=== PATIENT | male | born 1970 | race Caucasian/White ===

== ENCOUNTER → 2020-02-01 09:13 | Outpatient (BNVA) | payer OTHER, SELFPAY | PROVIDERS: PCP Internal Medicine; Visit Provider Internal Medicine Cardiovascular Disease | DX: Z76.89 Persons encountering health services in other specified circumstances (principal) ==

== ENCOUNTER → 2020-02-22 11:28 | Outpatient (BNVA) | payer OTHER, SELFPAY | PROVIDERS: PCP Internal Medicine; Referring Provider Internal Medicine; Visit Provider Nurse Practitioner Family | DX: Z76.89 Persons encountering health services in other specified circumstances (principal) ==

== ENCOUNTER → 2020-04-08 08:10 | Outpatient (BNVA) | payer OTHER, SELFPAY | PROVIDERS: PCP Internal Medicine; Referring Provider Internal Medicine; Visit Provider Internal Medicine Cardiovascular Disease | DX: I48.0 Paroxysmal atrial fibrillation (principal); I10 Essential (primary) hypertension | CPT/HCPCS: 93005 ==

== ENCOUNTER → 2020-04-10 09:36 | Outpatient (REF) | payer OTHER, SELFPAY | LOC: HO.SL 09:36 | PROVIDERS: PCP Internal Medicine; Visit Provider Nurse Practitioner Family | DX: Z13.89 Encounter for screening for other disorder (principal) ==

== ENCOUNTER 2022-12-28 08:59 | Outpatient (AMB) | payer OTHER, SELFPAY ==
--- NOTE | 2022-12-28 09:01 | MHC.OFFVIS ---
Intake Vital Signs 12/28/22 09:02 Height 6 ft Weight 332 lb 14.368 oz BMI 45.1 BP 160/82 H Blood Pressure Location Lt brachial Position Sitting Pulse 51 Intake Visit Reasons: Overdue f/u Intake Note: overdue f/up Allergies No Known Allergies Allergy (Unknown, Verified 12/28/22 09:10) Medication List - Last Reconciled 12/28/22 by nAa Luisa Hurst, CATALOG LIBRARIAN-C blood pressure monitor (Blood Pressure Kit) monitor home BP once weekly or as needed, keep a log diltiazem HCl (Cardizem CD) 360 mg PO DAILY 90 days diltiazem HCl (Cardizem) 30 mg PO ONCE PRN flecainide 100 mg PO BID 90 days lisinopril mg PO metformin 500 mg PO BID simvastatin 20 mg PO BEDTIME warfarin 10 mg PO DAILY HPI Overdue f/u HPI Details Mario is a 52-year-old male with past medical history of morbid obesity, hypertension, diabetes, sleep apnea, paroxysmal atrial fibrillation who presents for follow-up. His last prior visit to our office was 04/08/2020. Today he reports that he is interested in getting his cardiac care back in line. He denies any hospitalizations or ER trips over the last 3 years. He has not had any changes to his health overall. He says he did lose some weight then gained it back. He continues to drink beer routinely. On the weekend he may drink up to a 12 pack. When he drinks he eats more food. He is interested in seeking out therapy for his addictions. He has discussed this with his PCP. He says he has felt at least 2 episodes of atrial fibrillation since his last visit. The last episode was approximately 8 months ago and lasted a few hours. He can feel heart palpitations clearly when he has AFib. No other associated symptoms. When he gets that he just lays down and waits for it to go way. He reports compliance with his medications including flecainide and diltiazem. He is taking his Coumadin for anticoagulation and for denies any issues with bleeding. He denies shortness of breath, presyncope, syncope, PND, orthopnea or edema. He walks his dog and does normal ADLs. He has a problem with his left foot including neuropathy and says he is disabled. [facility] Medical History Diabetes mellitus HTN (hypertension) Obesity ADRIENNE (obstructive sleep apnea) Paroxysmal A-fib Surgical History H/O hernia repair Family History Father CVD (cardiovascular disease) Social History Alcohol intake: current Alcohol intake frequency: holidays/special occasions only Patient Tobacco Use Status: Tobacco use Unknown Review of Systems Const All systems reviewed & are unremarkable except as noted in HPI and below ENT Denies dizziness Card Denies chest pain, Denies chest pain at rest, Denies chest pain with activity, Denies rapid heart rate, Denies pedal edema, Denies edema, Denies leg edema, Denies lightheadedness, Reports palpitations (Rare on occasion), Denies dyspnea, Denies dyspnea on exertion and Denies orthopnea Resp Denies cough, Denies dyspnea and Denies dyspnea on exertion GI Denies hematochezia and Denies change in stool character Musc Denies abnormal gait, Denies limited range of motion, Denies muscle cramps, Denies muscle weakness, Denies numbness, Denies radiating pain into limb, Denies stiffness and Denies tingling Neuro Denies abnormal gait, Denies dizziness, Denies numbness and Denies tingling Endo Reports palpitations (Rare on occasion) Physical Exam Vital Signs: Last Vital Signs Pulse 51 12/28/22 09:02 BP 160/82 H 12/28/22 09:02 BMI result Body Mass Index 45.1 Const Other: Morbidly obese General: cooperative, comfortable and no acute distress Orientation/consciousness: patient oriented x3 Neck Neck: Yes normal visual inspection Resp Effort & Inspection: normal respiratory effort Auscultation: clear to auscultation bilaterally, no crackles, no rales, no rhonchi and no wheezes Cardio Jugular venous distension: no JVD Rate: regular rate Rhythm: regular rhythm Heart sounds: S1 normal heart sound present, S2 normal heart sound present, no gallops, no murmurs and no rubs Neuro General: patient oriented x3 Extrem General: Yes normal to inspection, No no pedal edema and No calf tenderness Psych Appearance: grossly normal Mental Status: mental status grossly normal Speech and movement: Normal speech and movement present Office Procedures EKG Details: Today, read by me, sinus bradycardia, no acute ST or T-wave abnormalities, rate 51, QTC 398 millisecond [id number], Complete Assessment & Plan Assessment & Plan (1) Paroxysmal A-fib: Code(s): I48.0 - Paroxysmal atrial fibrillation Plan: History of paroxysmal atrial fibrillation. Currently suppressed with flecainide and diltiazem. EKG done today showing sinus bradycardia, heart rate 51. No lightheadedness and has good activity tolerance. Last clinical episode of AFib was approximately 8 months ago. He can clearly tell when AFib is present. Pulse is regular on exam today. Will continue flecainide at 100 mg b.i.d., continue diltiazem 360 mg daily. Continue Coumadin for anticoagulation. He follows with the [facility] at [place] and tells me his INRs have been stable. No bleeding issues reported. Will update echocardiogram. Will order home sleep study as he tells me he has sleep apnea but does not wear a CPAP mask. Cardiology follow-up when test results are available. (2) HTN (hypertension): Code(s): I10 - Essential (primary) hypertension Plan: Elevated today. He is on diltiazem, lisinopril and reports compliance. He has an upcoming visit with PCP. If blood pressure is elevated lisinopril can be further increased. Will also plan to recheck at next visit. (3) ADRIENNE (obstructive sleep apnea): Code(s): G47.33 - Obstructive sleep apnea (adult) (pediatric) Plan: Patient reports prior diagnosis of sleep apnea. Has not been wearing a mask. No testing in the last few years. Will order home sleep study as above (4) Obesity: Code(s): E66.9 - Obesity, unspecified Plan: Morbidly obese. Tells me he has food addiction when he drinks alcohol. He is requesting psychotherapy for understanding and treating his addiction. Will send this note to his PCP for further review. Orders: Orders CA echo transthoracic complete Today I10 - Essential (primary) hypertension, I48.0 - Paroxysmal atrial fibrillation RT home sleep study Today E66.9 - Obesity, unspecified, G47.33 - Obstructive sleep apnea (adult) (pediatric) Coding Level of Care Code Est Pt Level 4 (06642) Diagnoses Paroxysmal A-fib I48.0 HTN (hypertension) I10 ADRIENNE (obstructive sleep apnea) G47.33 Obesity E66.9 CPT Codes EKG - CPT: 26591-[id number], Complete ([id number]) Time Spent (min) 30 Comment Chart review, documentation, interview, assessment
[2022-12-28 09:02] VITALS: BP 160/82; PULSE 51; BMI 45.1
== END 2022-12-28 09:32 | disposition home or self-care (01) ==
PROVIDERS: PCP Internal Medicine; Referring Provider Internal Medicine; Visit Provider Nurse Practitioner Family
DX: I48.0 Paroxysmal atrial fibrillation (principal); I10 Essential (primary) hypertension; G47.33 Obstructive sleep apnea (adult) (pediatric); E66.9 Obesity, unspecified
CPT/HCPCS: 93010; 99214

== ENCOUNTER → 2022-12-28 08:59 | Outpatient (BNVA) | payer OTHER, SELFPAY | PROVIDERS: PCP Internal Medicine; Referring Provider Internal Medicine; Visit Provider Nurse Practitioner Family | DX: I48.0 Paroxysmal atrial fibrillation (principal); I10 Essential (primary) hypertension; G47.33 Obstructive sleep apnea (adult) (pediatric); E66.01 Morbid (severe) obesity due to excess calories; Z68.42 Body mass index [BMI] 45.0-49.9, adult; Z79.01 Long term (current) use of anticoagulants; Z79.899 Other long term (current) drug therapy | CPT/HCPCS: 93005 ==

== ENCOUNTER → 2023-02-15 07:49 | Outpatient (REF) | payer OTHER, SELFPAY ==
--- NOTE | 2023-02-15 08:01 | CA_ITS ---
Transthoracic Echocardiogram Patient (Last, First, Middle): Mario Stokes A Gender: Male Date of : 1970 Age: 52 Procedure Date: 02/15/2023 Procedure Type: Transthoracic Echocardiogram Location: OP Height: 182.88 cm Weight: 145.15 kg BSA: 2.60 m2 Heart Rate: 48 bpm BP: 140 / 80 mmHg Retail Analyst: SAI/SWEETIE Referring MD: Ana Luisa Hurst POWER SAW MECHANICDonyC Symptoms: I48.0 - Paroxysmal atrial fibrillation Study Quality: Adequate w contrast ECG Rhythm: Bradycardia Conclusions: - The left ventricular systolic function is normal. The calculated ejection fraction is 63% by biplane method. - No obvious valvular pathology seen on this study. - There is mild dilatation of the ascending aorta measuring 4.00 cm. Findings Procedure Information Contrast agent, definity, is being given per protocol without apparent complications. Left Ventricle Normal left ventricular cavity size. There is mildly increased left ventricular wall thickness. The left ventricular systolic function is normal. The calculated ejection fraction is 63% by biplane method. There is no evidence of regional wall motion abnormalities. Diastolic function is normal for age. Right Ventricle Mildly increased right ventricular cavity size. There is normal right ventricular systolic function. Atria Mild biatrial enlargement. Aortic Valve There is a normal trileaflet aortic valve. There is mild calcification of the aortic valve. There is no aortic valve stenosis. There is no aortic valve regurgitation. Mitral Valve The mitral valve appears normal. There is no mitral valve regurgitation. There is no mitral valve stenosis. Pulmonic Valve The pulmonic valve is likely normal. Tricuspid Valve There is trace tricuspid valve regurgitation. Tricuspid regurgitation envelope is inadequate for calculation of right ventricular systolic pressure. Great Vessels There is mild dilatation of the ascending aorta measuring 4.00 cm. Small plaque is seen in the sino tubular ridge. Venous The inferior vena cava is normal in size and collapses less than 50% with inspiration. Pericardium/Pleural There is a trivial pericardial effusion. Prior Study Comparison Changes noted compared to prior study dated: 11/11/2017. See comment on ascending aorta. Recommendations, Care & Conclusions No obvious valvular pathology seen on this study. Measurements 2D Linear Measurements IVSd: 1.16 0.6-0.9/0.6-1.0 cm LVIDd: 4.84 3.9-5.3/4.2-5.9 cm LVIDd Index: 1.86 2.4-3.2/2.2-3.1 cm/m2 LVIDs: 3.14 2.0-3.6 cm LVPWd: 1.10 0.7-1.1 cm LA Diam: 4.00 2.7-3.8/3.0-4.0 cm LAIDs Index: 1.54 1.5-2.3 cm/m2 LV Mass: 254.31 67-162/88-224 g LV Mass Index: 97.81 43-95/49-115 g/m2 LVOT Diam: 2.60 3.0+(-)1.3 cm 2D Systolic Function EF 4C: 65.70 >55% EF 2C: 59.20 >55% EF BiP: 63.30 >55% Mitral Valve MV Pk E: 1.16 MV PK A: 0.99 MV Decel Time: 260.00 E/A: 1.20 E'Lateral: 10.70 E'Medial: 7.51 E/E' Med: 15.40 E/E' Lat: 10.80 PHT: 76.00 MVA PHT: 2.89 Decel Rice: 4.47 Aortic Valve AoV Pk Enrico: 1.99 AoV Mn Enrico: 1.35 AoV VTI: 0.55 AoV Pk Grad: 16.00 Aov Mn Grad: 9.00 BRI Cont.VTI: 3.65 LVOT LVOT Pk Enrico: 1.47 LVOT Mn Enrico: 0.93 LVOT VTI: 0.38 LVOT Pk Grad: 9.00 LVOT Mn Grad: 4.00 LVOT Diam: 2.60 LVOT Area: 5.31 Diastolic Function MV Pk E: 1.16 MV Pk A: 0.99 E/A: 1.20 E'Medial: 7.51 E/E' Med: 15.40 E' Laterial: 10.70 E/E' Lat: 10.80 Right Ventricle TAPSE (mm): 22.00 TVS' Enrico: 13.30 Tricuspid Valve RA Press: 8.00 Great Vessels Aorta Sinus of Valsalva: 3.94 2.0-3.[address] Ridge: 2.77 1.7-3.4 cm Ao Asc: 4.00 2.1-3.4 cm Updated in Other Vendor System with Status of Final Pedro Azar MD electronically signed on 02/16/2023 11:57:22 AM with status of Final
== END ==
LOC: HO.CARD 07:49
PROVIDERS: PCP Internal Medicine; Visit Provider Nurse Practitioner Family
DX: I48.0 Paroxysmal atrial fibrillation (principal); I10 Essential (primary) hypertension; G47.33 Obstructive sleep apnea (adult) (pediatric); E66.9 Obesity, unspecified
CPT/HCPCS: 93306; 95806; Q9957

== ENCOUNTER → 2023-02-15 08:01 | Outpatient (BNV) | payer OTHER, SELFPAY | PROVIDERS: PCP Internal Medicine; Visit Provider Internal Medicine | DX: I48.0 Paroxysmal atrial fibrillation (principal); I35.8 Other nonrheumatic aortic valve disorders | CPT/HCPCS: 93306 ==

== ENCOUNTER → 2023-02-15 08:14 | Outpatient (BNV) | payer OTHER, SELFPAY | PROVIDERS: PCP Internal Medicine; Visit Provider Internal Medicine | DX: G47.33 Obstructive sleep apnea (adult) (pediatric) (principal) | CPT/HCPCS: 95806 ==

== ENCOUNTER 2023-03-23 14:59 | Outpatient (AMB) | payer OTHER, SELFPAY ==
[2023-03-23 15:00] VITALS: BP 150/82; PULSE 53; BMI 46.9
--- NOTE | 2023-03-23 15:00 | MHC.OFFVIS ---
Intake Vital Signs 03/23/23 15:00 Height 6 ft Weight 345 lb 10.957 oz BMI 46.9 BP 150/82 H Blood Pressure Location Lt brachial Position Sitting Pulse 53 Pulse Source Pulse Oximeter Intake Visit Reasons: f/up echo/ home sleep Examining Officer Required: No Allergies No Known Allergies Allergy (Unknown, Verified 03/23/23 15:02) Medication List - Last Reconciled 03/23/23 by Ana Luisa Hurst NP-C blood pressure monitor (Blood Pressure Kit) monitor home BP once weekly or as needed, keep a log diltiazem HCl (Cardizem CD) 360 mg PO DAILY 90 days diltiazem HCl (Cardizem) 30 mg PO ONCE PRN flecainide 100 mg PO BID 90 days lisinopril mg PO metformin 500 mg PO BID simvastatin 20 mg PO BEDTIME warfarin 10 mg PO DAILY HPI f/up echo/ home sleep HPI Details Mario is a 52-year-old male with past medical history of morbid obesity, hypertension, diabetes, sleep apnea, paroxysmal AFib who presents for follow-up after recent echocardiogram and sleep study. Today he reports that he has been feeling well with no episodes of heart palpitations. He takes his medications faithfully. He has no chest discomfort, shortness of breath, lightheadedness, presyncope, syncope, falls. No PND, orthopnea or edema. He is on disability for a left foot injury with neuropathy. He had known sleep apnea in the past however it improved after he had lost significant weight. His weight is still down from what it was in the past. He is very to apprise to hear that he has sleep apnea still. No bleeding issues reported. [facility] Medical History Paroxysmal A-fib ADRIENNE (obstructive sleep apnea) Obesity Diabetes mellitus HTN (hypertension) Surgical History H/O hernia repair Family History Father CVD (cardiovascular disease) Alcohol intake: current Alcohol intake frequency: holidays/special occasions only Patient Tobacco Use Status: Tobacco use Unknown Review of Systems Const All systems reviewed & are unremarkable except as noted in HPI and below ENT Denies dizziness Card Denies chest pain, Denies chest pain at rest, Denies chest pain with activity, Denies rapid heart rate, Denies pedal edema, Denies edema, Denies leg edema, Denies lightheadedness, Denies palpitations, Denies dyspnea, Denies dyspnea on exertion and Denies orthopnea Resp Denies cough, Denies dyspnea and Denies dyspnea on exertion GI Denies hematochezia and Denies change in stool character Musc Denies abnormal gait, Denies limited range of motion, Denies muscle cramps, Denies muscle weakness, Denies numbness, Denies radiating pain into limb, Denies stiffness and Denies tingling Neuro Denies abnormal gait, Denies dizziness, Denies numbness and Denies tingling Endo Denies palpitations Physical Exam Vital Signs: Last Vital Signs Pulse 53 03/23/23 15:00 BP 150/82 H 03/23/23 15:00 BMI result Body Mass Index 46.9 Const Other: Morbidly obese General: cooperative, comfortable and no acute distress Orientation/consciousness: patient oriented x3 Neck Neck: Yes normal visual inspection Resp Effort & Inspection: normal respiratory effort Auscultation: clear to auscultation bilaterally, no crackles, no rales, no rhonchi and no wheezes Cardio Jugular venous distension: no JVD Rate: regular rate Rhythm: regular rhythm Heart sounds: S1 normal heart sound present, S2 normal heart sound present, no gallops, no murmurs and no rubs Neuro General: patient oriented x3 Extrem General: Yes normal to inspection, No no pedal edema and No calf tenderness Psych Appearance: grossly normal Mental Status: mental status grossly normal Speech and movement: Normal speech and movement present Assessment & Plan Assessment & Plan (1) Paroxysmal A-fib: Code(s): I48.0 - Paroxysmal atrial fibrillation Plan: History of paroxysmal atrial fibrillation. Lost to our cardiology follow-up between 04/08/2020 and 12/28/2022. Last episode of symptomatic AFib was approximate 11 months ago. He can clearly feel when he has AFib. Continues on flecainide and diltiazem, which have been refilled by his PCP when he was not seeing cardiology. EKG done last visit showing sinus bradycardia, heart rate 51, QTC 398 millisecond. No lightheadedness and has good activity tolerance. Echocardiogram done 02/15/2023 showing EF 63%, no regional wall motion abnormalities, no valve abnormalities, ascending aorta 4.0 cm, mild biatrial enlargement. Pulse is regular on exam today. Will continue flecainide at 100 mg b.i.d., continue diltiazem 360 mg daily. Continue Coumadin for anticoagulation. He follows with the [facility] at [place] and tells me his INRs have been stable. No bleeding issues reported. Considered Holter monitor to assess average heart rate however he declines as he is currently pain high copays for his tests. He is concerned cause the echocardiogram cost him $1300 dollars. For this reason he declines an EKG today. Will arrange for office EKG in 3 months. Cardiology follow-up in 9 months with EKG, sooner if needed. (2) ADRIENNE (obstructive sleep apnea): Code(s): G47.33 - Obstructive sleep apnea (adult) (pediatric) Plan: Patient reports prior diagnosis of sleep apnea. He reports weight loss since then and it has improved. He does not wear a mask. He did undergo a home sleep study on 03/11/2023 showing very severe obstructive sleep apnea with hypoxemia. Sleep study with titration ordered however he again is concerned about copays. He is dealing with the bills he has now and he is willing to have the test just prior to the new year. We helped him schedule a test date on 04/27/2023. Instructed to sleep on his side and not on his back. Referral to pulmonology already. (3) HTN (hypertension): Code(s): I10 - Essential (primary) hypertension Plan: Blood pressure again Elevated today. He is on diltiazem, lisinopril and reports compliance. With no recent labs on him. Recommend increase in lisinopril dose or add additional agent. Will forward this note to his PCP. (4) Obesity: Code(s): E66.9 - Obesity, unspecified Plan: Morbidly obese. Tells me he has food addiction when he drinks alcohol. He is leaving on 03/28/2023 for a 1 month trip. He plans to do a full body cleansing of poor diet, alcohol at that time. He is working on weight loss. Orders: Orders RT PSG in-lab sleep titration Today G47.33 - Obstructive sleep apnea (adult) (pediatric) Coding Level of Care Code Est Pt Level 3 (58982) Diagnoses Paroxysmal A-fib I48.0 ADRIENNE (obstructive sleep apnea) G47.33 HTN (hypertension) I10 Obesity E66.9 Time Spent (min) 24
== END 2023-03-23 15:40 | disposition home or self-care (01) ==
PROVIDERS: PCP Internal Medicine; Visit Provider Nurse Practitioner Family
DX: I48.0 Paroxysmal atrial fibrillation (principal); G47.33 Obstructive sleep apnea (adult) (pediatric); I10 Essential (primary) hypertension; E66.9 Obesity, unspecified
CPT/HCPCS: 99213

== ENCOUNTER → 2023-03-23 14:59 | Outpatient (BNVA) | payer OTHER, SELFPAY | PROVIDERS: PCP Internal Medicine; Visit Provider Nurse Practitioner Family ==

== ENCOUNTER → 2023-04-27 20:30 | Outpatient (REF) | payer OTHER, SELFPAY | LOC: HO.SL 20:30 | PROVIDERS: Visit Provider Nurse Practitioner Family | DX: G47.33 Obstructive sleep apnea (adult) (pediatric) (principal) | CPT/HCPCS: 95811 ==

== ENCOUNTER → 2023-04-27 21:04 | Outpatient (BNV) | payer OTHER, SELFPAY | PROVIDERS: Visit Provider Internal Medicine | DX: G47.33 Obstructive sleep apnea (adult) (pediatric) (principal) | CPT/HCPCS: 95811 ==

== ENCOUNTER 2023-05-31 08:53 | Outpatient (AMB) | payer OTHER, SELFPAY ==
[2023-05-31 08:59] VITALS: BP 118/70; PULSE 52; O2SAT 96; BMI 46.5
--- NOTE | 2023-05-31 08:59 | A.OFFVIS_ITS ---
Intake Vital Signs 05/31/23 08:59 Height 6 ft Weight 343 lb BMI 46.5 BP 118/70 Blood Pressure Location Lt brachial Position Sitting Pulse 52 Pulse Source Pulse Oximeter Pulse Oximetry (%) 96 Oxygen Delivery Method Room Air Intake Visit Reasons: Obstructive sleep apnea Intake Note: pt is here as a new patient for follow up of sleep study and had c-pap in past, very intrusive, totally hate it. Paper Cone Grader Required: No Allergies No Known Allergies Allergy (Unknown, Verified 05/31/23 09:04) Medication List - Last Reconciled 05/31/23 by Kelly Iniguez MD blood pressure monitor (Blood Pressure Kit) monitor home BP once weekly or as needed, keep a log diltiazem HCl (Cardizem CD) 360 mg PO DAILY 90 days diltiazem HCl (Cardizem) 30 mg PO ONCE PRN flecainide 100 mg PO BID 90 days lisinopril mg PO metformin 500 mg PO BID simvastatin 20 mg PO BEDTIME warfarin 10 mg PO DAILY Do you need a note to return to daycare/school/sports/work: No HPI Obstructive sleep apnea HPI Details This 53 years old gentleman is being seen for the 1st time. He has undergone home-based sleep study and then lab based CPAP titration study, and found to have Very very severe obstructive sleep apnea with the hypoxemia, He is being followed by cardiology service for his history of paroxysmal atrial fibrillation and hypertension, and after the above-noted sleep studies he is referred for ongoing management. This gentleman does have history of obstructive sleep apnea diagnosed about 10- 12 years ago, and was started on CPAP therapy. He did not like the CPAP, and gave up after using it for about 6 months. He does state that when he used CPAP he was sleeping somewhat better. Than he try to lose weight but from 400 lb down to about 350 lb, and he gave up using the CPAP. Now he does sleep wake up about 3 times per night but he say is this is to go to the bathroom. He denies any excessive daytime sleepiness. In his mind he thinks he is doing fine, and why he should use the CPAP. 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 He has put on some weight again. He is trying to minimize his symptoms. And the basic thing is, that he is resentful to the use of CPAP. We had a lengthy conversation, and finally he understands the importance using the CPAP. He say is he will definitely try. [facility] Medical History (Updated 05/31/23 @ 09:37 by Kelly Iniguez MD) Morbid obesity Paroxysmal A-fib ADRIENNE (obstructive sleep apnea) Obesity Diabetes mellitus HTN (hypertension) Surgical History H/O hernia repair Family History Father CVD (cardiovascular disease) Social History Alcohol intake: current Alcohol intake frequency: holidays/special occasions only Patient Tobacco Use Status: Tobacco use Unknown Review of Systems Const All systems reviewed & are unremarkable except as noted in HPI and below Eyes Reports no additional complaints ENT Reports no additional complaints Card Reports irregular heart rhythm (Paroxysmal atrial fibrillation), Denies leg edema and Denies dyspnea on exertion Resp Denies chest congestion, Denies cough, Denies dyspnea on exertion and Denies wheezing GI Reports no additional complaints Reports nocturia Musc Reports no additional complaints Skin/Breast Reports system reviewed and no additional complaints, except as documented Neuro Reports no additional complaints Psych Reports no additional complaints Endo Reports other (Type 2 diabetes mellitus/ hyperlipidemia) Lai/Lymph Reports no additional complaints Aller/Immun Reports no additional complaints and Denies wheezing Physical Exam Vital Signs: Last Vital Signs Pulse 52 05/31/23 08:59 BP 118/70 05/31/23 08:59 Pulse Ox 96 05/31/23 08:59 Oxygen Delivery Method Room Air 05/31/23 08:59 BMI result Body Mass Index 46.5 Const General: healthy appearing (Except for being overweight), comfortable, no acute distress, alert and awake Orientation/consciousness: patient oriented x3 HEENT Head: Yes normal to inspection General nose exam: No nasal polyps present and No nasal discharge present Face and sinus: Yes sinuses nontender Mouth: oropharynx abnormals (Narrow and crowded oropharynx, Mallampati class 4) Throat: Yes posterior oropharynx normal Eyes General: appearance normal, both eyes and all related structures Neck Neck: Yes normal visual inspection, Yes no lymphadenopathy, Yes trachea midline and Yes no JVD Thyroid: Thyroid normal Chest Chest palpation & inspection: normal inspection of the chest, normal palpation of entire chest wall and no tenderness Resp Effort & Inspection: normal respiratory effort Auscultation: clear to auscultation bilaterally, no crackles and no wheezes Cardio Palpation: normal PMI Rate: regular rate Rhythm: regular rhythm Heart sounds: no gallops and no murmurs Peripheral pulses: Peripheral pulses 2+ throughout GI Palpation (GI): Soft to palpation, nontender, No hepatosplenomegaly present and no masses Auscultation: normal bowel sounds Back/Spine/Pelvis Thoracic/Lumbar Spine: thoracic and lumbar spine normal to inspection Skin General skin exam: no rashes or lesions noted Neuro General: patient oriented x3 and no focal motor deficits Cranial nerves: Yes CN's II-XII intact bilaterally Extrem General: Yes normal to inspection, Yes no clubbing, cyanosis or edema and Yes no calf tenderness Psych Appearance: well kempt Speech and movement: Normal speech and movement present Results Reviewed Results Reviewed: HOME-BASED SLEEP STUDY ON 03/06/2023. TOTAL SLEEP TIME AHI 52.5 AND SNORING FOR 20% OF THE SLEEP TIME, ALONG WITH NOCTURNAL HYPOXEMIA LOWEST O2 SAT 76 AND O2 SAT BELOW 88% FOR 53 MINUTE. CPAP TITRATION STUDY IN THE SLEEP LAB ON 04/27/2023, SHOWED THAT HE RESPONDED VERY WELL TO THE CPAP THERAPY AND OPTIMAL PRESSURE OF 11 CM ELIMINATED ALL THE OBSTRUCTIVE EVENTS, SNORING WELL THE HYPOXEMIC EPISODE. Assessment & Plan Assessment & Plan (1) Morbid obesity: Comment: BMI=46.5 Code(s): E66.01 - Morbid (severe) obesity due to excess calories Plan: DISCUSSED WITH HIM ABOUT HIS MORBID OBESITY, THIS PUTS HIM AT A VERY HIGH RISK FOR OBSTRUCTIVE SLEEP APNEA AND OTHER COMORBIDITIES. IN ADDITION TO WATCHING DIET AND WALKING DAILY, HE SHOULD SERIOUSLY THINK ABOUT JOINING A WEIGHT MANAGEMENT PROGRAM. (2) ADRIENNE (obstructive sleep apnea): Comment: HE HAS LONGSTANDING HISTORY OF OBSTRUCTIVE SLEEP APNEA EXPECTED. HE IS RESENTFUL TO THE USE OF CPAP. WITH HIS CURRENT BMI OF 46 HE IS NOT CANDIDATE FOR ANY OTHER ALTERNATIVE MODES OF TREATMENT. AT THIS POINT THE BEST OPTION IS FOR HIM TO START USING THE CPAP. I HAD A LENGTHY DISCUSSION WITH HIM TRYING TO CONVINCE HIM THAT CPAP USAGE IS THE BEST OPTION, AND HE MUST TRY. HE HAS AGREE TO USE THE CPAP. Code(s): G47.33 - Obstructive sleep apnea (adult) (pediatric) Plan: CPAP THERAPY WITH PRESSURE OF 11 CM, USING FULLFACE MASK PER HIS CHOICE, . IS BEING ORDERED I HAVE TRY TO EDUCATE HIM MUCH POSSIBLE, AND I THINK HE IS GOING TO BE SERIOUS ABOUT USING THE CPAP. WILL CHECK HIM FOR FOLLOW-UP IN ABOUT 6 WEEKS, AND MONITOR HIS COMPLIANCE/BENEFITS. Coding Level of Care Code New Pt Level 3 (58120) Diagnoses Morbid obesity E66.01 ADRIENNE (obstructive sleep apnea) G47.33
== END 2023-05-31 09:24 | disposition home or self-care (01) ==
PROVIDERS: PCP Internal Medicine; Referring Provider Nurse Practitioner Family; Visit Provider Internal Medicine
DX: G47.33 Obstructive sleep apnea (adult) (pediatric) (principal); E66.01 Morbid (severe) obesity due to excess calories
CPT/HCPCS: 99213

== ENCOUNTER → 2023-05-31 08:53 | Outpatient (BNVA) | payer OTHER, SELFPAY | PROVIDERS: Visit Provider Internal Medicine ==

== ENCOUNTER 2023-07-20 08:36 | Outpatient (AMB) | payer OTHER, SELFPAY ==
[2023-07-20 08:41] VITALS: BP 150/70; PULSE 51; BMI 47.2
--- NOTE | 2023-07-20 08:41 | MHC.OFFVIS ---
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 Allergies No Known Allergies Allergy (Unknown, Verified 07/20/23 08:44) Medication List - Last Reconciled 07/20/23 by Ana Luisa Hurst, ALEXUS-C blood pressure monitor (Blood Pressure Kit) monitor home BP once weekly or as needed, keep a log diltiazem HCl (Cardizem CD) 360 mg PO DAILY 90 days diltiazem HCl (Cardizem) 30 mg PO ONCE PRN flecainide 100 mg PO BID 90 days lisinopril mg PO metformin 500 mg PO BID simvastatin 20 mg PO BEDTIME warfarin 10 mg PO DAILY HPI ekg/ discuss meds HPI Details Mario is a 53-year-old male with past medical history of morbid obesity, hypertension, diabetes, sleep apnea, paroxysmal atrial fibrillation who presents for follow-up. Today he reports that he does feel his heart pounding hard and fast at times. This usually follows his evening of drinking beer and playing cards. He describes it as being bothersome to him and is requesting additional diltiazem to use p.r.n.. He states he has had this medication in the past for this reason. Has no palpitations that he feels are atrial fibrillation. No chest discomfort, shortness of breath, lightheadedness, presyncope, syncope, PND, orthopnea or edema. Is on disability from left foot injury with neuropathy. He works part-time. Taking meds as directed. No bleeding issues reported. [facility] Medical History Morbid obesity Paroxysmal A-fib ADRIENNE (obstructive sleep apnea) Obesity Diabetes mellitus HTN (hypertension) Surgical History H/O hernia repair Family History Father CVD (cardiovascular disease) Social History Alcohol intake: current Alcohol intake frequency: holidays/special occasions only Patient Tobacco Use Status: Tobacco use Unknown Review of Systems Const All systems reviewed & are unremarkable except as noted in HPI and below ENT Denies dizziness Card Denies chest pain, Denies chest pain at rest, Denies chest pain with activity, Reports rapid heart rate, Denies pedal edema, Denies edema, Denies leg edema, Denies lightheadedness, Denies palpitations, Denies dyspnea, Denies dyspnea on exertion and Denies orthopnea Resp Denies cough, Denies dyspnea and Denies dyspnea on exertion GI Denies hematochezia and Denies change in stool character Musc Denies abnormal gait, Denies limited range of motion, Denies muscle cramps, Denies muscle weakness, Denies numbness, Denies radiating pain into limb, Denies stiffness and Denies tingling Neuro Denies abnormal gait, Denies dizziness, Denies numbness and Denies tingling Endo Denies palpitations Physical Exam Vital Signs: Last Vital Signs Pulse 51 07/20/23 08:41 BP 150/70 H 07/20/23 08:41 BMI result Body Mass Index 47.2 Const Other: morbid obesity General: cooperative, healthy appearing, comfortable and no acute distress Orientation/consciousness: patient oriented x3 Neck Neck: Yes normal visual inspection and Yes no JVD Resp Effort & Inspection: normal respiratory effort Auscultation: clear to auscultation bilaterally, no rales, no rhonchi and no wheezes Cardio Jugular venous distension: no JVD Rate: regular rate Rhythm: regular rhythm Heart sounds: S1 normal heart sound present, S2 normal heart sound present, no murmurs and no rubs Neuro General: patient oriented x3 Extrem General: Yes normal to inspection, No no pedal edema and No calf tenderness Psych Appearance: grossly normal Mental Status: mental status grossly normal Speech and movement: Normal speech and movement present Office Procedures EKG Details: Today, read by me, Sinus brdycardia, rate 51, QTc 411ms [id number], Complete Assessment & Plan Assessment & Plan (1) Paroxysmal A-fib: Code(s): I48.0 - Paroxysmal atrial fibrillation Plan: History of paroxysmal atrial fibrillation. Lost to our cardiology follow-up between 04/08/2020 and 12/28/2022. Last episode of symptomatic AFib was approximate 1 year ago. He can clearly feel when he has AFib. Continues on flecainide and diltiazem, which have been refilled by his PCP when he was not seeing cardiology. EKG done today showing showing sinus bradycardia, heart rate 51, QTC 411 millisecond. No lightheadedness and has good activity tolerance. Echocardiogram done 02/15/2023 showing EF 63%, no regional wall motion abnormalities, no valve abnormalities, ascending aorta 4.0 cm, mild biatrial enlargement. Pulse is regular on exam today. Will continue flecainide at 100 mg b.i.d., continue diltiazem 360 mg daily. Continue Coumadin for anticoagulation. He follows with the [facility] at [place] and tells me his INRs have been stable. No bleeding issues reported. Considered Holter monitor to assess average heart rate however he declines as he is currently pain high copays for his tests. He is concerned cause the echocardiogram cost him $1300 dollars. He does feel strong pounding rapid heartbeats after he drinks beer once weekly when playing cards. He is requesting short-acting diltiazem and states he has had a prescription for this in the past. I do not see that in our records. Encouraged to stop drinking alcohol but he states that he has cut down greatly from what he used to have in the past. Will give him a few tablets of diltiazem short-acting that can be used p.r.n.. Cardiology follow-up in 6 months with EKG, sooner if needed. (2) ADRIENNE (obstructive sleep apnea): Comment: HE HAS LONGSTANDING HISTORY OF OBSTRUCTIVE SLEEP APNEA EXPECTED. HE IS RESENTFUL TO THE USE OF CPAP. WITH HIS CURRENT BMI OF 46 HE IS NOT CANDIDATE FOR ANY OTHER ALTERNATIVE MODES OF TREATMENT. AT THIS POINT THE BEST OPTION IS FOR HIM TO START USING THE CPAP. I HAD A LENGTHY DISCUSSION WITH HIM TRYING TO CONVINCE HIM THAT CPAP USAGE IS THE BEST OPTION, AND HE MUST TRY. HE HAS AGREE TO USE THE CPAP. Code(s): G47.33 - Obstructive sleep apnea (adult) (pediatric) Plan: Patient reports prior diagnosis of sleep apnea. He reports weight loss since then and it has improved. He did undergo a home sleep study on 03/11/2023 showing very severe obstructive sleep apnea with hypoxemia. Sleep study with titration done on 05/12/2023. He now follows with Dr. Geetha for pulmonology and sleep apnea treatment. (3) HTN (hypertension): Code(s): I10 - Essential (primary) hypertension Plan: Blood pressure Elevated today. He tells me that he spent a a few days watching his grandchildren and had high salty foods. He knew his blood pressure would be elevated at this visit. He is taking diltiazem, lisinopril and reports compliance. With no recent labs on him. He states that PCP has done labs. Will try to obtain copy of labs for our records. Will forward this note to his PCP. If blood pressure remains elevated at follow-up once he is taking in only low-salt diet then recommend additional agent for blood pressure control. (4) Obesity: Code(s): E66.9 - Obesity, unspecified Plan: Morbidly obese. Tells me he has food addiction when he drinks alcohol. He is leaving on 03/28/2023 for a 1 month trip. On last visit he told me He plans to do a full body cleansing of poor diet, alcohol. Today he reports that it has not worked out. He has tried various diets and he has not been able to stick to it. He would benefit from referral to weight management program. Plan Time spent on chart review, documentation, interview assess Medications: New diltiazem HCl 30 mg PO DAILY PRN 14 tabs 0RF Palpitations Coding Level of Care Code Est Pt Level 4 (67374) Diagnoses Paroxysmal A-fib I48.0 ADRIENNE (obstructive sleep apnea) G47.33 HTN (hypertension) I10 Obesity E66.9 CPT Codes EKG - CPT: 28992-[id number], Complete ([id number]) Time Spent (min) 30
== END 2023-07-20 09:11 | disposition home or self-care (01) ==
PROVIDERS: PCP Internal Medicine; Visit Provider Nurse Practitioner Family
DX: I48.0 Paroxysmal atrial fibrillation (principal); G47.33 Obstructive sleep apnea (adult) (pediatric); I10 Essential (primary) hypertension; E66.9 Obesity, unspecified
CPT/HCPCS: 93010; 99214

== ENCOUNTER → 2023-07-20 08:36 | Outpatient (BNVA) | payer OTHER, SELFPAY | PROVIDERS: PCP Internal Medicine; Visit Provider Nurse Practitioner Family | DX: I48.0 Paroxysmal atrial fibrillation (principal); I10 Essential (primary) hypertension; G47.33 Obstructive sleep apnea (adult) (pediatric); E66.9 Obesity, unspecified; Z68.42 Body mass index [BMI] 45.0-49.9, adult; Z79.01 Long term (current) use of anticoagulants; Z79.899 Other long term (current) drug therapy | CPT/HCPCS: 93005 ==

== ENCOUNTER 2023-09-13 09:39 | Outpatient (AMB) | payer OTHER, SELFPAY ==
[2023-09-13 09:59] VITALS: BP 130/82; PULSE 55; O2SAT 96; BMI 45.9
--- NOTE | 2023-09-13 09:59 | A.OFFVIS_ITS ---
Vital Signs 09/13/23 09:59 Height 6 ft Weight 338 lb 6.553 oz BMI 45.9 BP 130/82 Blood Pressure Location Lt brachial Position Sitting Pulse 55 Pulse Source Pulse Oximeter Pulse Oximetry (%) 96 Oxygen Delivery Method Room Air Intake Visit Reasons: Obstructive sleep apnea follow-up Intake Note: pt is here for follow up and he just hates the dry mouth but he is using it at least 4 hours. 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 Allergies No Known Allergies Allergy (Unknown, Verified 09/13/23 10:05) Medication List - Last Reconciled 09/13/23 by Kelly Iniguez MD blood pressure monitor (Blood Pressure Kit) monitor home BP once weekly or as needed, keep a log diltiazem HCl 30 mg PO DAILY PRN diltiazem HCl CD (Cardizem CD) 360 mg PO DAILY 90 days flecainide 100 mg PO BID 90 days lisinopril mg PO metformin 500 mg PO BID simvastatin 20 mg PO BEDTIME warfarin 10 mg PO DAILY Do you need a note to return to daycare/school/sports/work: No HPI HPI Obstructive sleep apnea follow-up: Details: 53 YEARS OLD GENTLEMAN WITH MORBID OBESITY AND OBSTRUCTIVE SLEEP APNEA COMES AFTER 6 MONTHS FOR FOLLOW-UP HE IS USING CPAP REGULARLY BUT MISSES A FEW NIGHTS EVERY MONTH. HE SLEEPS WELL EXCEPT FOR 1 COMPLIANT AND THAT IS DRYNESS OF THE MOUTH, IN SPITE OF USING THE DISTILLED WATER IN THE MACHINE. HIS AVERAGE USAGE IS ABOUT 4 HOURS PER NIGHT AND THEN HE TAKES IT OFF BECAUSE OF DRY MOUTH. STILL HE GETS GOOD SLEEP. AT NIGHT AND DENIES ANY DAYTIME SLEEPINESS HE IS TRYING TO LOSE WEIGHT SLOWLY. [facility] Medical History Morbid obesity Paroxysmal A-fib ADRIENNE (obstructive sleep apnea) Obesity Diabetes mellitus HTN (hypertension) Surgical History H/O hernia repair Family History Father CVD (cardiovascular disease) Social History Alcohol intake: current Alcohol intake frequency: holidays/special occasions only Patient Tobacco Use Status: Former Tobacco user Years Smoked: 30 Review of Systems Const All systems reviewed & are unremarkable except as noted in HPI and below Eyes Reports no additional complaints ENT Reports no additional complaints Card Reports irregular heart rhythm (Paroxysmal atrial fibrillation), Denies leg edema and Denies dyspnea on exertion Resp Denies chest congestion, Denies cough, Denies dyspnea on exertion and Denies wheezing GI Reports no additional complaints Reports nocturia Musc Reports no additional complaints Skin/Breast Reports system reviewed and no additional complaints, except as documented Neuro Reports no additional complaints Psych Reports no additional complaints Endo Reports other (Type 2 diabetes mellitus/ hyperlipidemia) Lai/Lymph Reports no additional complaints Aller/Immun Reports no additional complaints and Denies wheezing Physical Exam Vital Signs: Last Vital Signs Pulse 55 09/13/23 09:59 BP 130/82 09/13/23 09:59 Pulse Ox 96 09/13/23 09:59 Oxygen Delivery Method Room Air 09/13/23 09:59 BMI result Body Mass Index 45.9 Const General: healthy appearing (Except for being overweight), comfortable, no acute distress, alert and awake Orientation/consciousness: patient oriented x3 HEENT Head: Yes normal to inspection General nose exam: No nasal polyps present and No nasal discharge present Face and sinus: Yes sinuses nontender Mouth: oropharynx abnormals (Narrow and crowded oropharynx, Mallampati class 4) Throat: Yes posterior oropharynx normal Eyes General: appearance normal, both eyes and all related structures Neck Neck: Yes normal visual inspection, Yes no lymphadenopathy, Yes trachea midline and Yes no JVD Thyroid: Thyroid normal Chest Chest palpation & inspection: normal inspection of the chest, normal palpation of entire chest wall and no tenderness Resp Effort & Inspection: normal respiratory effort Auscultation: clear to auscultation bilaterally, no crackles and no wheezes Cardio Palpation: normal PMI Rate: regular rate Rhythm: regular rhythm Heart sounds: no gallops and no murmurs Peripheral pulses: Peripheral pulses 2+ throughout GI Palpation (GI): Soft to palpation, nontender, No hepatosplenomegaly present and no masses Auscultation: normal bowel sounds Back/Spine/Pelvis Thoracic/Lumbar Spine: thoracic and lumbar spine normal to inspection Skin General skin exam: no rashes or lesions noted Neuro General: patient oriented x3 and no focal motor deficits Cranial nerves: Yes CN's II-XII intact bilaterally Extrem General: Yes normal to inspection, Yes no clubbing, cyanosis or edema and Yes no calf tenderness Psych Appearance: well kempt Speech and movement: Normal speech and movement present Results Reviewed Results Reviewed: COMPLIANCE REPORT IS REVIEWED AND HE HAS USED 26/30 NIGHTS, 87%. AVERAGE USE IT PER NIGHT 4 HOURS 45 MINUTES. PRESSURE 11 CM. .THERE IS THE MINIMAL AIR LEAKAGE RESIDUAL AHI 2.1 Assessment & Plan Assessment & Plan (1) Morbid obesity: Comment: BMI=45.9 HE DID LOSE 10 LB DURING THE LAST 6 MONTHS. Code(s): E66.01 - Morbid (severe) obesity due to excess calories Category: Medical Plan: COMMENDED FOR LOSING SOME WEIGHT. ENCOURAGED TO KEEP ON LOSING MORE. (2) ADRIENNE (obstructive sleep apnea): Comment: HE HAS LONGSTANDING HISTORY OF OBSTRUCTIVE SLEEP APNEA EXPECTED. HE HAS BEEN USING CPAP RELATIVELY MORE REGULARLY. HE STATES THAT THE DRYNESS OF THE MOUTH AFTER MIDNIGHT IS WHAT MAKES HIM USE LESS THAN OPTIMAL. STILL USES AT LEAST FOR 4-1/2 HOURS EVERY NIGHT. Code(s): G47.33 - Obstructive sleep apnea (adult) (pediatric) Category: Medical Plan: ENCOURAGED TO USE AT LEAST FOR 5 HOURS OR. MORE EVERY NIGHT MAKE SURE THAT HE USES DISTILLED WATER IN THE TECH AND KEEPS THE HUMIDITY AT MAXIMUM LEVEL. Coding Level of Care Code Est Pt Level 3 (93874) Diagnoses Morbid obesity E66.01 ADRIENNE (obstructive sleep apnea) G47.33
== END 2023-09-13 10:26 | disposition home or self-care (01) ==
PROVIDERS: PCP Internal Medicine; Visit Provider Internal Medicine
DX: E66.01 Morbid (severe) obesity due to excess calories (principal); G47.33 Obstructive sleep apnea (adult) (pediatric)
CPT/HCPCS: 99213

== ENCOUNTER → 2023-09-13 09:39 | Outpatient (BNVA) | payer OTHER, SELFPAY | PROVIDERS: PCP Internal Medicine; Visit Provider Internal Medicine ==

== ENCOUNTER 2024-02-15 12:10 | Outpatient (AMB) | payer BC, SELFPAY ==
[2024-02-15 12:31] VITALS: BP 142/88; PULSE 49; BMI 47.5
--- NOTE | 2024-02-15 12:31 | MHC.OFFVIS ---
Vital Signs 02/15/24 12:31 Height 6 ft Weight 350 lb 8.56 oz BMI 47.5 BP 142/88 H Blood Pressure Location Lt brachial Position Sitting Pulse 49 L Intake Visit Reasons: 6 mth /fup Intake Note: 6 month follow-up with ekg feeling good Manager Security And Safety Required: No Allergies No Known Allergies Allergy (Unknown, Verified 09/13/23 10:05) Medication List - Last Reconciled 02/15/24 by Howard Heard MD blood pressure monitor (Blood Pressure Kit) monitor home BP once weekly or as needed, keep a log diltiazem HCl 30 mg PO DAILY PRN diltiazem HCl CD (Cardizem CD) 360 mg PO DAILY 90 days flecainide 100 mg PO BID 90 days lisinopril 30 mg PO ONCE metformin 500 mg PO BID simvastatin 20 mg PO BEDTIME warfarin 10 mg PO DAILY HPI Comments Details: Mario comes for follow-up. Overall he has been doing well. He said occasionally still drinks. Does not follow his diet on a regular basis. Can only use CPAP for hours at a stretch due to dry mouth. He has not had any prolonged episodes of atrial fibrillation. Occasionally gets fluttering after he has a drink. No exertional chest pain or shortness of breath. No lightheadedness, syncope. No heart failure symptoms. Takes all his medications. No bleeding issues or neurologic events. [facility] Medical History Morbid obesity Paroxysmal A-fib ADRIENNE (obstructive sleep apnea) Obesity Diabetes mellitus HTN (hypertension) Surgical History H/O hernia repair Family History Father CVD (cardiovascular disease) Social History Alcohol intake: current Alcohol intake frequency: holidays/special occasions only Patient Tobacco Use Status: Former Tobacco user Years Smoked: 30 Review of Systems Const Denies chills, Denies fatigue, Denies fever(s), Denies frequent falls, Denies weakness, Denies weight gain and Denies weight loss ENT Denies dizziness Card Denies chest pain, Denies leg edema, Denies lightheadedness, Denies palpitations, Denies dyspnea, Denies dyspnea on exertion, Denies orthopnea and Denies other (loss of consciousness) Resp Denies cough, Denies dyspnea and Denies dyspnea on exertion GI Denies hematochezia and Denies change in stool character Musc Denies abnormal gait, Denies muscle weakness, Denies numbness, Denies radiating pain into limb and Denies tingling Neuro Denies abnormal gait, Denies dizziness, Denies frequent falls, Denies numbness, Denies tingling and Denies weakness Endo Denies fatigue and Denies palpitations Physical Exam Vital Signs: Last Vital Signs Pulse 49 L 02/15/24 12:31 BP 142/88 H 02/15/24 12:31 BMI result Body Mass Index 47.5 Const Other: morbid obesity General: cooperative, healthy appearing, comfortable and no acute distress Orientation/consciousness: patient oriented x3 Neck Neck: Yes normal visual inspection and Yes no JVD Resp Effort & Inspection: normal respiratory effort Auscultation: clear to auscultation bilaterally, no rales, no rhonchi and no wheezes Cardio Jugular venous distension: no JVD Rate: regular rate Rhythm: regular rhythm Heart sounds: S1 normal heart sound present, S2 normal heart sound present, Murmur heart sound present systolic early, decrescendo and crescendo and no rubs Neuro General: patient oriented x3 Extrem General: Yes normal to inspection, No no pedal edema and No calf tenderness Psych Appearance: grossly normal Mental Status: mental status grossly normal Speech and movement: Normal speech and movement present Office Procedures EKG Details: EKG shows sinus bradycardia 49 beats per minute [id number], Complete Assessment & Plan Assessment & Plan (1) Paroxysmal A-fib: Code(s): I48.0 - Paroxysmal atrial fibrillation Category: Medical Plan: Highly symptomatic paroxysmal atrial fibrillation with multiple risk factors including obesity, sleep apnea as well as hypertension. He has well controlled symptoms currently on flecainide therapy. Needs concomitant Cardizem therapy to reduce conduction through the AV node. I have advised him to continue with aggressive risk factor modification. Blood pressure is not well optimized although he thinks the blood pressure is better controlled at home. He would like to do a monitoring blood pressure at home. He will report me in a month's time with blood pressure findings. Goal blood pressure less than 130/84. Encouraged to continue to participate in aggressive weight loss program. Continue CPAP therapy. Currently on full oral anticoagulation with warfarin which should continue with target INR between 2 and 3 being followed by [facility] at [place] (2) HTN (hypertension): Code(s): I10 - Essential (primary) hypertension Category: Medical Plan: Hypertension not well optimized although he thinks this is due to his poor diet. He says he does not a day or 2 always low-salt diet and healthy diet. Advised him to participate in diet and monitor blood pressure at home. Blood pressure remains significantly elevated will need to increase lisinopril to 40 mg b.i.d.. Importance of this was discussed with him. Will follow-up echocardiogram in 1 year's time. Follow up in the clinic in 6 months for EKG in 1 year with me. Thank you for allowing me to partake in his care Medications: Refilled diltiazem HCl 30 mg PO DAILY PRN 30 tabs 1RF Palpitations Coding Level of Care Code Est Pt Level 4 (04362) Complex EM visit Add On G2211 Diagnoses Paroxysmal A-fib I48.0 HTN (hypertension) I10 CPT Codes EKG - CPT: 88725-[id number], Complete ([id number])
== END 2024-02-15 12:54 | disposition home or self-care (01) ==
PROVIDERS: PCP Internal Medicine; Visit Provider Internal Medicine Cardiovascular Disease
DX: I48.0 Paroxysmal atrial fibrillation (principal); I10 Essential (primary) hypertension
CPT/HCPCS: 93010; 99214

== ENCOUNTER → 2024-02-15 12:10 | Outpatient (BNVA) | payer BC, SELFPAY | PROVIDERS: PCP Internal Medicine; Visit Provider Internal Medicine Cardiovascular Disease | DX: I48.0 Paroxysmal atrial fibrillation (principal); I10 Essential (primary) hypertension; Z79.01 Long term (current) use of anticoagulants; Z79.899 Other long term (current) drug therapy | CPT/HCPCS: 93005 ==

== ENCOUNTER 2024-07-11 10:06 | Outpatient (AMB) | payer BC, SELFPAY ==
[2024-07-11 10:21] VITALS: BP 122/72; PULSE 47; O2SAT 96; BMI 45.7
--- NOTE | 2024-07-11 10:21 | A.OFFVIS_ITS ---
Vital Signs 07/11/24 10:21 Height 6 ft Weight 337 lb 4.916 oz BMI 45.7 BP 122/72 Blood Pressure Location Lt brachial Position Sitting Pulse 47 L Pulse Source Pulse Oximeter Pulse Oximetry (%) 96 Oxygen Delivery Method Room Air Intake Visit Reasons: Obstructive sleep apnea Intake Note: pt is here for follow up and states he still has dry mouth, some good days and bad days. Allergies No Known Allergies Allergy (Unknown, Verified 07/11/24 13:18) Medication List - Last Reconciled 07/11/24 by Klely Iniguez MD blood pressure monitor (Blood Pressure Kit) monitor home BP once weekly or as needed, keep a log diltiazem HCl 30 mg PO DAILY PRN diltiazem HCl CD (Cardizem CD) 360 mg PO DAILY 90 days flecainide 100 mg PO BID 90 days lisinopril 30 mg PO ONCE metformin 500 mg PO BID simvastatin 20 mg PO BEDTIME warfarin 10 mg PO DAILY Do you need a note to return to daycare/school/sports/work: No HPI HPI Obstructive sleep apnea: Details: This 54 years old gentleman who is a case of morbid obesity and severe obstructive sleep apnea with the background of paroxysmal atrial fibrillation, Is using CPAP for his sleep apnea. In the last 6 months he has been relatively. less compliant He claims that he puts on the CPAP at night but during the night pulls it off because of dryness of the mouth. He is using full-, face mask and tries to use the humidification regularly but it has not help. It seems that he is focusing on this issue as the reason for noncompliance. He say is he sleeps better without the mask. He knows that he is grossly overweight and he has to use the CPAP, He say is he is trying to lose weight, and hoping that at some point he can come off the CPAP. FORMERLY [facility], [facility] Medical History Morbid obesity Paroxysmal A-fib ADRIENNE (obstructive sleep apnea) Obesity Diabetes mellitus HTN (hypertension) Surgical History H/O hernia repair Family History Father CVD (cardiovascular disease) Social History Alcohol intake: current Alcohol intake frequency: holidays/special occasions only Patient Tobacco Use Status: Former Tobacco user Years Smoked: 30 Review of Systems Const All systems reviewed & are unremarkable except as noted in HPI and below Eyes Reports no additional complaints ENT Reports no additional complaints Card Reports irregular heart rhythm (Paroxysmal atrial fibrillation), Denies leg edema and Denies dyspnea on exertion Resp Denies chest congestion, Denies cough, Denies dyspnea on exertion and Denies wheezing GI Reports no additional complaints Reports nocturia Musc Reports no additional complaints Skin/Breast Reports system reviewed and no additional complaints, except as documented Neuro Reports no additional complaints Psych Reports no additional complaints Endo Reports other (Type 2 diabetes mellitus/ hyperlipidemia) Lai/Lymph Reports no additional complaints Aller/Immun Reports no additional complaints and Denies wheezing Physical Exam Vital Signs: Last Vital Signs Pulse 47 L 07/11/24 10:21 BP 122/72 07/11/24 10:21 Pulse Ox 96 07/11/24 10:21 Oxygen Delivery Method Room Air 07/11/24 10:21 BMI result Body Mass Index 45.7 Const General: healthy appearing (Except for being overweight), comfortable, no acute distress, alert and awake Orientation/consciousness: patient oriented x3 HEENT Head: Yes normal to inspection General nose exam: No nasal polyps present and No nasal discharge present Face and sinus: Yes sinuses nontender Mouth: oropharynx abnormals (Narrow and crowded oropharynx, Mallampati class 4) Throat: Yes posterior oropharynx normal Eyes General: appearance normal, both eyes and all related structures Neck Neck: Yes normal visual inspection, Yes no lymphadenopathy, Yes trachea midline and Yes no JVD Thyroid: Thyroid normal Chest Chest palpation & inspection: normal inspection of the chest, normal palpation of entire chest wall and no tenderness Resp Effort & Inspection: normal respiratory effort Auscultation: clear to auscultation bilaterally, no crackles and no wheezes Cardio Palpation: normal PMI Rate: regular rate Rhythm: regular rhythm Heart sounds: no gallops and no murmurs Peripheral pulses: Peripheral pulses 2+ throughout GI Palpation (GI): Soft to palpation, nontender, No hepatosplenomegaly present and no masses Auscultation: normal bowel sounds Back/Spine/Pelvis Thoracic/Lumbar Spine: thoracic and lumbar spine normal to inspection Skin General skin exam: no rashes or lesions noted Neuro General: patient oriented x3 and no focal motor deficits Cranial nerves: Yes CN's II-XII intact bilaterally Extrem General: Yes normal to inspection, Yes no clubbing, cyanosis or edema and Yes no calf tenderness Psych Appearance: well kempt Speech and movement: Normal speech and movement present Results Reviewed Results Reviewed: Compliance for the last 30 nights is reviewed and he has used only 13/30 days, 43%. Average usage per night 3 hours 14 minutes. There is only mild air leak. Residual AHI 1.3 Assessment & Plan Assessment & Plan (1) Morbid obesity: Comment: BMI=45.7 HE DID LOSE 13 LB DURING THE LAST 6 MONTHS. IT SEEMS THAT HE IS PROGRESSING SLOWLY IN LOSING WEIGHT. Code(s): E66.01 - Morbid (severe) obesity due to excess calories Category: Medical Plan: ADVISED TO CONTINUE WATCHING HIS DIET AND DO EXERCISE DAILY, AND KEEP ON LOSING WEIGHT EVEN THOUGH IT IS A FEW LB PER EVERY MONTH. HE ASKED IF HE WOULD EVER COME OFF THE CPAP AND I DID REPLY THAT IF HE CAN LOSE SIGNIFICANT WEIGHT YES THEN HE WILL BE ABLE TO, THE CPAP. (2) ADRIENNE (obstructive sleep apnea): Comment: HE HAS LONGSTANDING HISTORY OF OBSTRUCTIVE SLEEP APNEA EXPECTED. HE WAS USING CPAP RELATIVELY REGULARLY UP UNTIL LAST VISIT. NOW HE IS USING IT LESS OFTEN AND ALSO REMOVES THE MASK FROM HIS FACE AFTER US ING IT ABOUT 3-4 HOURS. HE CITES THE CAUSE DRYNESS OF THE MOUTH, EVEN THOUGH HE IS USING THE HUMIDITY. MODE Code(s): G47.33 - Obstructive sleep apnea (adult) (pediatric) Category: Medical Plan: I DISCUSSED WITH HIM IN DETAIL ABOUT THE NEED USE CPAP REGULARLY EVERY NIGHT AT LEAST FOR 4 HOURS PER NIGHT. DISCUSSED ABOUT THE HUMIDITY ISSUE, HE SHOULD USE HUMIDIFICATION AT THE MAXIMUM LEVEL AND MAKE SURE THAT THE WATER TANK IS USED DURING THE NIGHT. HE IS USING FULLFACE MASK AND THERE IS NOT MUCH AIR LEAK SO I DO NOT. THINK THAT IS THE PROBLEM HE MAY TRY USING BIOTENE OR JANUSZ GEL LIKE PRODUCTS. Coding Level of Care Code Est Pt Level 3 (27131) Diagnoses Morbid obesity E66.01 ADRIENNE (obstructive sleep apnea) G47.33
--- OUTSIDE RECORDS SUMMARY | 2024-07-11 11:53 | XMS_ITS ---
Author Name [facility] Organization Unknown History of Medication Use Medication Directions Dispensed Refills Start Date End Date Stat us metFORMINTakeNo date recordedNo form recordedNo frequency recordedNo route recordedNo set duration recordedNo set duration amount recordedactiveNo dosage strength recordedNo dosage strength units of measure recorded active benzonatateTake 1 Ca psule (oral) 3 times per day PRN - Cough for 5 [id number] times per [id number] 06/14/2023 active predniSONETake 2 Tab let (oral) 1 time per day for 5 [id number] time per [id number] 06/14/2023 activ e lisinopriLTakeNo solomon e recordedNo form recordedNo frequency recordedNo route recordedNo set duration recordedNo set duration amount recordedactiveNo dosage strength recordedNo dosage strength units of measure recorded active amoxicillinTake 1 Ta blet (oral) 2 times per day for 10 [id number] times per [id number] 06/14/2023 act josefa dilTIAZem HCLTakeNo date recordedNo form recordedNo frequency recordedNo route recordedNo set duration recordedNo set duration amount recordedactiveNo dosage strength recordedNo dosage strength units of measure recorded active flecainideTakeNo solomon e recordedNo form recordedNo frequency recordedNo route recordedNo set duration recordedNo set duration amount recordedactiveNo dosage strength recordedNo dosage strength units of measure recorded active Problems Problem Status Onset Date Problem Type Date of Resoluti on Source Streptococcal pharyngitis active 2023-10-22 ProblemAct [facility] Unspecified atrial fibrillation active ProblemAct [facility]_PHYSONE Type 2 diabetes mellitus without complications active ProblemAct [facility]_PHY SONE Hypertension active ProblemAct [facility]_PHY SONE
--- OUTSIDE RECORDS SUMMARY | 2024-07-11 11:53 | XMS_ITS | Encounter Summary ---
Author Organization [facility] Address [address] [place] [address] Care Team Providers Care Honeycomb Decapper Name Role Phone Deangelo Jha MD Primary Care Provider [phone] Encounter Details Date Type Department Care Team (Latest Contact Info) Description 06/16/2024 Anticoagulation - Warfarin Visit Coumadin [address] [phone] Angela Cooney LPN Atrial fibrillation, unspecified type (CMS/HCC) (Primary Dx) Social History Tobacco Use Types Packs/Day Years Used Date Smoking Tobacco: Former Cigarettes Q uit: 05/03/2004 Smokeless Tobacco: Never Alcohol Use Standard Drinks/Week Comments Yes 0 (1 standard drink = 0.6 oz pur e alcohol) Sex and Gender Information Value Date Recorded Sex Assigned at Male 05/01/2024 9:20 AM EST Legal Sex Male 10:46 AM EST Gender Identity Male 05/01/2024 9:20 AM EST Sexual Orientation Not on file documented as of this encounter Plan of Treatment Upcoming Encounters Date Type Department Care Team (Late st Contact Info) Description 11/10/2024 8:30 AM EDT Office Visit Adult Medicine [address] [phone] Deangelo Jha MD [address] [place] [id number] documented as of this encounter Procedures Procedure Name Priority Date/Time Associated Diagnosis Comments PROTHROMBIN TIME WITH INR Routine 06/16/2024 documented in this encounter Results * Prothrombin time with INR (06/16/2024) INR 2.6 Prothrombin Time POC Blood Venous blood specimen / Unknown 06/16/2024 us Deangelo Jha MD LAB BLOOD ORDERABLES Final Resu lt documented in this encounter Visit Diagnoses Diagnosis Atrial fibrillation, unspecified type (CMS/HCC)- Primary documented in this encounter Care Teams Honeycomb Decapper Relationship Specialty Start Date End Date Deangelo Jha MD [address] [place] [id number] PCP - General 03/15/20 documented as of this encounter
--- OUTSIDE RECORDS SUMMARY | 2024-07-11 11:53 | XMS_ITS | Clinical Summary ---
Author Organization [facility] Address [address] [place] [address] Phone Care Team Providers Care Senior Analysis Specialist Name Role Phone Deangelo Jha MD Primary Care Provider [phone] Allergies No known active allergies Medications blood sugar diagnostic (FreeStyle Lite Strips) test stripIndications :Type II diabetes mellitus with peripheral circulatory disorder (CMS/HCC) To test sugars twice a day prior to meals 100 each 2 4 Active flecainide (TAMBOCOR) 100 mg tablet Take 1 tablet (100 mg total) by mouth 2 (two) times a day. 180 tablet 4 Active lisinopriL (PRINIVIL,ZESTRI L) 30 mg tablet Take 1 tablet (30 mg total) by mouth 2 (two) times a day. 180 tablet 4 Active freestyle (FreeStyle Lancets) 28 gauge lancetsIndicatio ns:Type II diabetes mellitus with peripheral circulatory disorder (CMS/HCC) To test sugars twice a day prior to meals 100 each 2 4 Active metFORMIN (GLUCOPHAGE) 500 mg tablet Take 1 tablet (500 mg total) by mouth 2 (two) times a day with meals. 180 tablet 4 Active sildenafiL (VIAGRA) 100 mg tablet Take 1 tablet (100 mg total) by mouth if needed for erectile dysfunction. 10 tablet 1 4 Active simvastatin (ZOCOR) 20 mg tablet Take 1 tablet (20 mg total) by mouth at bedtime. 90 tablet 4 Active warfarin (COUMADIN) 10 mg tablet Take 1 tablet (10 mg total) by mouth 1 (one) time each day. 90 tablet 4 Active dilTIAZem CD (CARDIZEM CD) 360 mg 24 hr capsule Take 1 capsule (360 mg total) by mouth 1 (one) time each day. 90 capsule 4 Active Active Problems Problem Noted Date Diagnosed Date Atrial fibrillation 03/09/2024 A-fib 01/18/2024 Essential hypertension, benign 01/18/2024 Obstructive sleep apnea 01/18/2024 Overview (01/18/2024): NOT TREATED (Jan 2020, July 2020, Dec 2020) Psoriasis 01/18/2024 Morbid obesity with BMI of 40.0-44.9, adult 01/01 Anticoagulated on Coumadin 01/18/2024 Overview (01/18/2024): A-Fib Erectile dysfunction 01/20/2020 Type II diabetes mellitus wi th peripheral circulatory disorder 01/18/2020 Crushing injury of toe with foot or ankle, left, sequela 01/13/2020 Medial meniscus tear 10/24/2014 Plantar fasciitis 02/12/2014 Knee pain 02/12/2014 Elbow pain 02/12/2014 Type 2 diabetes, controlled, with renal manifest ation 12/20/2012 Hypercholesteremia 04/18/2009 Microalbuminuria 04/18/2009 Elevated LFTs 04/18/2009 ETOH abuse 04/15/2009 Encounters Date Type Department Care Team Description 06/30/2024 Anticoagulation - Warfarin Visit [facility] - [address] [phone] Angela Cooney LPN Atrial fibrillation, unspecified type (CMS/HCC) (Primary Dx) 06/16/2024 Anticoagulation - Warfarin Visit [facility] [address] [phone] Angela Cooney LPN Atrial fibrillation, unspecified type (CMS/HCC) (Primary Dx) 06/09/2024 Anticoagulation - Warfarin Visit [facility] [address] [phone] Deangelo Jha MD Atrial fibrillation, unspecified type (CMS/HCC) (Primary Dx) 06/02/2024 Anticoagulation - Warfarin Visit Coumadin [address] [phone] Angela Cooney LPN Atrial fibrillation, unspecified type (CMS/HCC) (Primary Dx) 05/26/2024 Anticoagulation - Warfarin Visit [address] [phone] Angela Cooney LPN Atrial fibrillation, unspecified type (CMS/HCC) (Primary Dx) 05/19/2024 Anticoagulation - Warfarin Visit Coumadin [address] [phone] Angela Cooney LPN Atrial fibrillation, unspecified type (CMS/HCC) (Primary Dx) 05/05/2024 Anticoagulation - Warfarin Visit [address] [phone] Angela Cooney LPN Atrial fibrillation, unspecified type (CMS/HCC) (Primary Dx) 05/04/2024 2:30 PM EST Office Visit Adult Medicine [address] [phone] Deangelo Jha MD Controlled type 2 diabetes mellitus with microalbuminuria, without long-term current use of insulin (CMS/HCC) (Primary Dx); Essential hypertension, benign; Atrial fibrillation, unspecified type (CMS/HCC); Hypercholesteremia ; Microalbuminuria; Encounter for long-term (current) use of medications; Screening for malignant neoplasm of prostate; Other specified counseling; Lower urinary tract symptoms (LUTS) 04/28/2024 Anticoagulation - Warfarin Visit Coumadin [address] [phone] Angela Cooney LPN Atrial fibrillation, unspecified type (CMS/HCC) (Primary Dx) 04/24/2024 Anticoagulation - Warfarin Visit [address] [phone] Kathy Doshi LPN Atrial fibrillation, unspecified type (CMS/HCC) (Primary Dx) 04/24/2024 Anticoagulation - Warfarin Visit [facility] [address] [phone] Kathy Doshi LPN Atrial fibrillation, unspecified type (CMS/HCC) (Primary Dx) 04/13/2024 Anticoagulation - Warfarin Visit Coumadin [address] [phone] Angela Cooney LPN Atrial fibrillation, unspecified type (CMS/HCC) (Primary Dx) from Last 3 Months Immunizations Name Administration Dates Next Due Tdap Tetanus diptheria acell ular pertussis (Boostrix; Adacel) 7yo and older 12/29/2021,09/23/2009 Surgical History Surgery Date Site/Laterality Comments HERNIA REPAIR PROCEDURE: REPAIR UMBILICAL HERNIA; COMMENT: per records Medical History Medical History Date Comments Psoriasis DX:Psoriasis Sleep apnea DX:Sleep apnea A-fib ([facility]/HCC) DX:A-fib ([facility]) Hypercholesteremia 04/18/2009 DX:Hyperchole steremia Proteinuria 04/18/2009 DX:Proteinuria Type II or unspecified type diabetes mellitus with unspecified complication, not stated as uncontrolled DX:Type II or unspecified t ype diabetes mellitus with unspecified complication, not stated as uncontrolled Essential hypertension, benign D X:Essential hypertension, benign Crushing injury of toe with foot or ankle, left, sequela 01/13/2020 DX:Crushing injury of toe wi th foot or ankle, left, sequela Family History Medical History Relation Name Comments Heart attack Father Hypertension Father Other cancer Maternal Grandmother Hypertension Mother Blindness Neg Hx Cataracts Neg Hx Glaucoma Neg Hx Macular degeneration Neg Hx Strabismus Neg Hx Relation Name Status Comments Father Maternal Grandmother Mother Social History Tobacco Use Types Packs/Day Years [...] AM EST Sexual Orientation Not on file Obstetrics History Last Filed Vital Signs Vital Sign Reading Time Taken Comments Blood Pressure 136/70 05/04/2024 2:50 PM EST Pulse 58 05/04/2024 2:15 PM EST Temperature 36.2 ??C (97.1 ??F) 05/04/2024 2:15 PM ES T Respiratory Rate 12 05/04/2024 2:15 PM EST Oxygen Saturation - - Inhaled Oxygen Concentration - - Weight 158 kg (348 lb) 05/04/2024 2:15 PM EST Height 182.9 cm (6') 05/04/2024 2:15 PM EST Body Mass Index 47.2 05/04/2024 2:15 PM EST Plan of Treatment Upcoming Encounters Date Type Department Care Team (Late st Contact Info) Description 11/10/2024 8:30 AM EDT Office Visit Adult Medicine [facility] [address] [place] [address] [phone] Deangelo Jha MD [address] [place] [phone] Health Maintenance Due Date Last Done Comments Hepatitis A Vaccines (1 of 2 - Risk 2-dose series) 1988 Hepatitis B Vaccines (1 of 3 - 19+ 3-dose series) 1988 Pneumococcal Vaccine: 50+ Years (1 of 2 - PCV) 1988 Pneumococcal Vaccine: Pediatrics (0 to 5 Years) and At-Risk Patients (6 to 64 Years) (1 of 2 - PCV) 1988 Zoster Vaccines (1 of 2) 2019 Diabetes: Annual Foot Exam 12/31/2021 12/31/2020 Diabetes: Annual Retina Eye Exam 03/25/2022 03/25/2021 Colorectal Cancer Screening: Colonoscopy 04/11/2022 Depression Screening 04/11/2022 HIV Screening 04/11/2022 Hepatitis C Screening 04/11/2022 Social Influencers of Health Screening 04/11/2022 COVID-19 Vaccine (3 - 2023-2 5 season) 2024 04/11/2021, 08/12/2020 Influenza Vaccine (#1) 2024 Diabetes: Blood Sugar Contro l Test (HGBA1C) 06/23/2024 12/22/2023 Diabetes: Annual Urine Albumin-Creatinine Ratio (uACR) 12/21/2024 12/22/2023 Diabetes: Annual GFR (Glomerular Filtration Rate) 12/21/2024 12/22/2023 Hypertension/CHF/CAD Annual BMP Blood Test 12/21/2024 12/22/2023 Cholesterol Screening (Lipid Panel) 12/21/2028 12/22/2023 DTaP,Tdap,and Td Vaccines (3 - Td or Tdap) 12/30/2031 12/29/2021, 09/23/2009 HIB Vaccines Aged Out No longer eligi ble based on patient's age to complete this topic HPV Vaccines Aged Out No longer eligi ble based on patient's age to complete this topic IPV Vaccines Aged Out No longer eligi ble based on patient's age to complete this topic MMR Vaccines Aged Out No longer eligi ble based on patient's age to complete this topic Meningococcal ACWY Vaccine Aged Out N o longer eligible based on patient's age to complete this topic Meningococcal B Vacine Aged Out No lo nger eligible based on patient's age to complete this topic RSV Immunization Patients Under 20 months Aged Out No longer eligible b ased on patient's age to complete this topic Varicella Vaccines Aged Out No longer eligible based on patient's age to complete this topic Procedures Procedure Name Priority Date/Time Associated Diagnosis Comments PROTHROMBIN TIME WITH INR 06/30/2024 PROTHROMBIN TIME WITH INR Routine 06/30/2024 PROTHROMBIN TIME WITH INR 06/16/2024 PROTHROMBIN TIME WITH INR Routine 06/16/2024 PROTHROMBIN TIME WITH INR 06/09/2024 PROTHROMBIN TIME WITH INR Routine 06/09/2024 PROTHROMBIN TIME WITH INR 06/02/2024 PROTHROMBIN TIME WITH INR Routine 06/02/2024 PROTHROMBIN TIME WITH INR 05/26/2024 PROTHROMBIN TIME WITH INR Routine 05/26/2024 PROTHROMBIN TIME WITH INR 05/19/2024 PROTHROMBIN TIME WITH INR Routine 05/19/2024 PROTHROMBIN TIME WITH INR 05/05/2024 PROTHROMBIN TIME WITH INR Routine 05/05/2024 PROTHROMBIN TIME WITH INR 04/28/2024 PROTHROMBIN TIME WITH INR Routine 04/28/2024 PROTHROMBIN TIME WITH INR Routine 04/24/2024 PROTHROMBIN TIME WITH INR 04/24/2024 PROTHROMBIN TIME WITH INR 04/21/2024 PROTHROMBIN TIME WITH INR Routine 04/21/2024 PROTHROMBIN TIME WITH INR 04/13/2024 PROTHROMBIN TIME WITH INR Routine 04/13/2024 from Last 3 Months Results * Prothrombin time with INR (06/30/2024) Only the most recent of22 resultswithin the time period is included. us Provider [facility] LAB BLOOD ORDERABLES Fin al Result from Last 3 Months Insurance [facility] Care Teams Senior Analysis Specialist Relationship Specialty Start Date End Date Deangelo Jha MD [address] [place] [id number] PCP - General 03/15/20
--- OUTSIDE RECORDS SUMMARY | 2024-07-11 11:53 | XMS_ITS | Encounter Summary ---
Author Organization [facility] Address [address] [place] [address] Care Team Providers Care Theatrical Variety Agent Name Role Phone Deangelo Jha MD Primary Care Provider [phone] Encounter Details Date Type Department Care Team (Latest Contact Info) Description 06/30/2024 Anticoagulation - Warfarin Visit Coumadin [address] [phone] Angela Cooney LPN Atrial fibrillation, unspecified type [...] 8:30 AM EDT Office Visit Adult Medicine [address] [phone] Deangelo Jha MD [address] [place] [phone] documented as of this encounter Procedures Procedure Name Priority Date/Time Associated Diagnosis Comments PROTHROMBIN TIME WITH INR Routine 06/30/2024 documented in this encounter Results * Prothrombin time with INR (06/30/2024) INR 2.0 Prothrombin Time POC Blood Venous blood specimen / Unknown 06/30/2024 us Deangelo Jha MD LAB BLOOD ORDERABLES Final Resu lt documented in this encounter Visit Diagnoses Diagnosis Atrial fibrillation, unspecified type (CMS/HCC)- Primary documented in this encounter Care Teams Theatrical Variety Agent Relationship Specialty Start Date End Date Deangelo Jha MD [address] [place] [phone] PCP - General 03/15/20 documented as of this encounter
== END 2024-07-11 11:04 | disposition home or self-care (01) ==
LOC: HO.HPS 10:07
PROVIDERS: PCP Internal Medicine; Visit Provider Internal Medicine
DX: E66.01 Morbid (severe) obesity due to excess calories (principal); G47.33 Obstructive sleep apnea (adult) (pediatric)
CPT/HCPCS: 99213

== ENCOUNTER → 2025-04-12 07:51 | Outpatient (REF) | payer BC, SELFPAY ==
--- NOTE | 2025-04-12 07:54 | CA_ITS ---
Transthoracic Echocardiogram Patient (Last, First, Middle): Mario Stokes A Gender: Male Date of : 1970 Age: 55 Procedure Date: 04/12/2025 Procedure Type: Transthoracic Echocardiogram Location: OP Height: 182.88 cm Weight: 152.86 kg BSA: 2.66 m2 Heart Rate: bpm BP: 122 / 72 mmHg Ict Security Specialist: SAI Referring MD: Howard Heard MD Affiliate Marketing Manager: Howard Heard MD Symptoms: I48.0 - Paroxysmal atrial fibrillation Study Quality: Adequate with contrast ECG Rhythm: Sinus Conclusions: - 1. Normal LV ejection fraction of 65-70% with impaired relaxation filling pattern 2. Normal cardiac valvular Dopplers 3. Mildly dilated ascending aorta at 4.1 cm 4. No gross pericardial effusion Findings Procedure Information Contrast agent, definity, is being given per protocol without apparent complications. Left Ventricle Normal left ventricular size, thickness, and systolic function. The visually estimated ejection fraction is between 65-70%. Spectral Doppler is indicative of an impaired relaxation filling pattern. E/E prime ratio is between 8 and 15 consistent with indeterminate filling pressures. Right Ventricle Normal right ventricular cavity size and systolic function. Atria The left atrium is likely dilated. There is no evidence of interatrial shunt. The right atrium is normal in size. Aortic Valve Normal aortic valve structure and function. There is no aortic valve stenosis. There is no aortic valve regurgitation. Mitral Valve Normal mitral valve structure and function. There is trace mitral valve regurgitation. There is no mitral valve stenosis. Pulmonic Valve The pulmonic valve is likely normal. There is trace pulmonic valve regurgitation. Tricuspid Valve Likely normal tricuspid valve structure and function. Tricuspid regurgitation envelope is inadequate for calculation of right ventricular systolic pressure. Normal right atrial pressure. Great Vessels The pulmonary artery was not well visualized. There is mild dilatation of the ascending aorta measuring 4.10 cm. Venous The inferior vena cava is normal in size and collapses greater than 50% with inspiration. Pericardium/Pleural There is no evidence of pericardial effusion. Prior Study Comparison No significant change compared to prior study dated: 02/15/2023. Measurements 2D Linear Measurements IVSd: 1.15 0.6-0.9/0.6-1.0 cm LVIDd: 5.29 3.9-5.3/4.2-5.9 cm LVIDd Index: 1.99 2.4-3.2/2.2-3.1 cm/m2 LVIDs: 2.86 2.0-3.6 cm LVPWd: 1.07 0.7-1.1 cm LA Diam: 4.40 2.7-3.8/3.0-4.0 cm LAIDs Index: 1.65 1.5-2.3 cm/m2 LV Mass: 286.55 67-162/88-224 g LV Mass Index: 107.73 43-95/49-115 g/m2 LVOT Diam: 2.50 3.0+(-)1.3 cm 2D Systolic Function EF 4C: 62.90 >55% EF 2C: 72.00 >55% EF BiP: 66.80 >55% Mitral Valve MV VTI: 0.53 MV Pk Enrico: 1.40 MV Mn Enrico: 0.65 MV Pk Grad: 8.00 MV Mn Grad: 2.00 MV Pk E: 1.09 MV PK A: 1.10 MV Decel Time: 244.00 E/A: 1.00 E'Lateral: 7.29 E'Medial: 5.55 E/E' Med: 19.60 E/E' Lat: 15.00 PHT: 71.00 MVA PHT: 3.10 MVA Continuity: 3.12 Decel Bath: 4.46 Aortic Valve AoV Pk Enrico: 2.12 AoV Mn Enrico: 1.51 AoV VTI: 0.53 AoV Pk Grad: 18.00 Aov Mn Grad: 10.00 BRI Cont.VTI: 3.12 LVOT LVOT Pk Enrico: 1.55 LVOT Mn Enrico: 0.87 LVOT VTI: 0.34 LVOT Pk Grad: 10.00 LVOT Mn Grad: 4.00 LVOT Diam: 2.50 LVOT Area: 4.91 Diastolic Function MV Pk E: 1.09 MV Pk A: 1.10 E/A: 1.00 E'Medial: 5.55 E/E' Med: 19.60 E' Laterial: 7.29 E/E' Lat: 15.00 Right Ventricle TAPSE (mm): 27.00 TVS' Enrico: 16.60 Tricuspid Valve RA Press: 3.00 Great Vessels Aorta Sinus of Valsalva: 4.04 2.0-3.[address] Ridge: 2.71 1.7-3.4 cm Ao Asc: 4.10 2.1-3.4 cm Ao Arch: 3.30 Updated in Other Vendor System with Status of Final Howard Heard MD electronically signed on 04/13/2025 7:36:16 AM with status of Final
== END ==
LOC: HO.CARD 07:51
PROVIDERS: PCP Internal Medicine; Visit Provider Internal Medicine Cardiovascular Disease
DX: I48.0 Paroxysmal atrial fibrillation (principal); I10 Essential (primary) hypertension; R40.0 Somnolence
CPT/HCPCS: 93306; Q9957

== ENCOUNTER → 2025-04-12 07:54 | Outpatient (BNV) | payer BC, SELFPAY | PROVIDERS: PCP Internal Medicine; Visit Provider Internal Medicine Cardiovascular Disease | DX: I77.810 Thoracic aortic ectasia (principal) | CPT/HCPCS: 93306 ==